=== PATIENT | female | born 1985 | race Caucasian/White ===

== ENCOUNTER 2018-05-27 18:45 | Emergency (ER) | payer OTHER ==
[~2018-05-27] VITALS: Ht 154.9 cm; Wt 83.9 kg
[2018-05-27 18:50] VITALS: BP_SYST 156
--- NOTE | 2018-05-27 18:56 | NUR ---
Patient to ER bed 08 to gown for evaluation. Side rails up.
--- NOTE | 2018-05-27 19:19 | NUR ---
Pt came into the ED for R shoulder pain that started last Thursday, pain progressively got worse. Pt states its a sharp pain and related it to a tight muscle pain. Pt took ibuprofen PO 200 mg with no relief. Denies trauma or twisting. NKDA. No prior medical history. No n/v/d or fever. No other complaints/injuries noted. Will cont. to monitor.
--- NOTE | 2018-05-27 19:20 | NUR ---
CHRIST Seals at bedside examining patient.
--- NOTE | 2018-05-27 19:31 | NUR ---
Patient given written and verbal discharge instructions and verbalizes understanding. ER MD Chakraborty discussed with patient the results and treatment provided. Patient in stable condition. ID arm band removed. Rx of Flexeril, Naproxen given. Patient educated on pain management and to follow up with PMD. Pain Scale 2. Opportunity for questions provided and answered. Medication side effect fact sheet provided.
[2018-05-27 19:32] VITALS: BP_SYST 142
== END 2018-05-27 19:31 | disposition home or self-care (01) ==
LOC: SED 18:45
DX: S46.911A Strain of unspecified muscle, fascia and tendon at shoulder and upper arm level, right arm, initial encounter (principal); R03.0 Elevated blood-pressure reading, without diagnosis of hypertension; X58.XXXA Exposure to other specified factors, initial encounter; Y93.89 Activity, other specified; Y92.89 Other specified places as the place of occurrence of the external cause; Y99.8 Other external cause status
CPT/HCPCS: 99283